=== PATIENT | female | born 1950 | race African-American/Black ===

== ENCOUNTER 2017-11-23 10:14 | Outpatient (CLI) | payer MEDICARE | END 2017-11-23 10:15 | disposition home or self-care (01) | LOC: BICMAMMO 10:14 | PROVIDERS: ATTEND Internal Medicine | DX: Z12.31 Encounter for screening mammogram for malignant neoplasm of breast (principal); R92.1 Mammographic calcification found on diagnostic imaging of breast; Z80.3 Family history of malignant neoplasm of breast | CPT/HCPCS: 77063; 77067 ==

== ENCOUNTER 2018-10-16 07:12 | Outpatient (CLI) | payer MEDICARE ==
[2018-10-16 08:11] LABS: Estimated GFR-MDRD - POC Greater than 90
--- NOTE | 2018-10-16 15:00 | MRI ---
MRI OF THE BILATERAL BREASTS WITHOUT AND WITH CONTRAST: HISTORY: Right breast pain and nipple discharge. The patient has a history of cheloid after right breast biop sy in 1977. TECHNIQUE: Multiplanar, multisequence MR images were obtained in the bilateral breasts without and with IV contr ast. This exam was evaluated on the [employer] work station. FINDINGS: Scattered fibroglandular breast tissue was seen. Minimal background parenchymal enhancement is seen. No suspicious mass or suspicious enhancement is seen in either breast. No axillary adenopathy is seen. No internal mammary lymph nodes are identified. The anterior liver and osseous structures are unremarkable. IMPRESSION: BIRADS category 1 - negative. Annual screening mammography is recommended.
[2018-10-16] MEDS ORDERED: Gadobenate Dimeglumine 529 MG/1 ML (20ML VIAL) ONE (15:57)
== END 2018-10-16 07:13 | disposition home or self-care (01) ==
LOC: BICMRI 07:12
PROVIDERS: ATTEND Surgery
DX: N64.52 Nipple discharge (principal)
CPT/HCPCS: 82565; C8908; A9577

== ENCOUNTER 2019-01-30 08:48 | Outpatient (CLI) | payer MEDICARE ==
--- NOTE | 2019-01-30 09:21 | MMO ---
Bilateral MAMMO Bilat Screen [facility]. CLINICAL HISTORY: Patient is 68 years old and is seen for screening. The patient has the following family history of breast cancer: mother and sister. The patient has no personal history of cancer. The patient has a history of bilateral Excisional Biopsy - benign. VIEWS: The views performed were: bilateral craniocaudal with tomosynthesis and bilateral mediolateral oblique with tomosynthesis. FILMS COMPARED: The present examination has been compared to prior imaging studies performed at [facility] on 10/16/2015, 11/22/2016, 11/23/2017 and 10/16/2018. This study has been interpreted with the assistance of computer-aided detection. MAMMOGRAM FINDINGS: There are scattered fibroglandular densities. There are no suspicious masses, suspicious calcifications, or new areas of architectural distortion. IMPRESSION: THERE IS NO MAMMOGRAPHIC EVIDENCE OF MALIGNANCY. A ROUTINE FOLLOW-UP MAMMOGRAM IN 1 YEAR IS RECOMMENDED. THE RESULTS OF THIS EXAM WERE SENT TO THE PATIENT. ACR BI-RADS Category 1 - Negative MAMMOGRAPHY NOTE: 1. A negative mammogram report should not delay a biopsy if a dominant of clinically suspicious mass is present. 2. Approximately 10% to 15% of breast cancers are not detected by mammography. 3. Adenosis and dense breasts may obscure an underlying neoplasm. Reported by: JULES HAMMOND MD Electonically Signed: [id number]
== END 2019-01-30 08:49 | disposition home or self-care (01) ==
LOC: BICMAMMO 08:48
PROVIDERS: ATTEND Internal Medicine
DX: Z12.31 Encounter for screening mammogram for malignant neoplasm of breast (principal); Z80.3 Family history of malignant neoplasm of breast
CPT/HCPCS: 77063; 77067

== ENCOUNTER 2020-01-14 08:04 | Outpatient (CLI) | payer MEDICARE ==
--- NOTE | 2020-01-14 09:04 | MMO ---
Bilateral MAMMO Bilat Diag [facility]. CLINICAL HISTORY: Patient is 69 years old and is seen for diagnostic exam and non-bloody discharge in the right breast. The patient has the following family history of breast cancer: mother and sister. The patient has no personal history of cancer. The patient has a history of bilateral Excisional Biopsy - benign. VIEWS: The views performed were: bilateral craniocaudal with tomosynthesis; bilateral mediolateral oblique with tomosynthesis; and bilateral mediolateral with tomosynthesis. FILMS COMPARED: The present examination has been compared to prior imaging studies performed at [facility] on 11/23/2017, 10/16/2018, 01/30/2019 and 01/14/2020. This study has been interpreted with the assistance of computer-aided detection. MAMMOGRAM FINDINGS: There are scattered fibroglandular densities. Benign calcifications are noted bilaterally. No mammographic or sonograhic abnormality is seen in the right subaerolar breast. There are no suspicious masses, suspicious calcifications, or new areas of architectural distortion. IMPRESSION: THERE IS NO MAMMOGRAPHIC EVIDENCE OF MALIGNANCY. A ROUTINE FOLLOW-UP MAMMOGRAM IN 1 YEAR IS RECOMMENDED. THE RESULTS OF THIS EXAM WERE SENT TO THE PATIENT. ACR BI-RADS Category 2 - Benign finding MAMMOGRAPHY NOTE: 1. A negative mammogram report should not delay a biopsy if a dominant of clinically suspicious mass is present. 2. Approximately 10% to 15% of breast cancers are not detected by mammography. 3. Adenosis and dense breasts may obscure an underlying neoplasm. Reported by: DEEDEE TSE MD Electonically Signed: [id number]
--- NOTE | 2020-01-14 09:11 | ULT ---
RIGHT BREAST ULTRASOUND: HISTORY: Milky discharge from the right breast. FINDINGS: Correlation is made with the mammogram of the same day. Sonographic evaluation of the retroareolar aspect of the right breast demonstrates no abnormality. IMPRESSION: BIRADS category 2 - benign findings. Return to annual mammographic screening. POS: OFF
== END 2020-01-14 08:05 | disposition home or self-care (01) ==
LOC: BICMAMMO 08:04
PROVIDERS: ATTEND Surgery
DX: N64.52 Nipple discharge (principal)
CPT/HCPCS: 76642; 77066; G0279

== ENCOUNTER 2020-03-05 07:48 | Outpatient (CLI) | payer MEDICARE ==
[2020-03-05 18:47] LABS: #Eosinphils 0.1 10x3/uL (0.0-0.5); #Monocytes 0.4 10x3/uL (0.0-1.1); #Neutrophils 2.3 10x3/uL (1.5-8.4); %Basophils 0.7 % (0.0-2.0); %Eosinophils 2.4 % (0.0-6.0); %Lymphocytes 47.8 % (18.0-47.0); %Neutrophils 41.9 % (40.0-75.0); Mean Corpuscular HGB CONC 32.6 G/DL (32.0-36.0); Mean Corpuscular Volume 89.1 fl (80.0-100.0); Mean Platelet Volume 10.1 fl (7.4-10.4); Platelet Count 254 10x3/uL (130-400); RBC Distribution Width 13.3 % (11.5-14.5); Red Blood Cell (RBC) Count 4.48 10x6/uL (3.90-5.20); White Blood Cell (WBC) Count 5.4 10x3/uL (4.5-11.0)
[2020-03-06 01:59] LABS: SARS-CoV-2 PCR by NAA Not Detected (NotDetected)
== END 2020-03-05 07:49 | disposition home or self-care (01) ==
LOC: LABBT 07:48
PROVIDERS: ATTEND Surgery
DX: Z01.812 Encounter for preprocedural laboratory examination (principal); Z20.822 Contact with and (suspected) exposure to COVID-19; N64.52 Nipple discharge
CPT/HCPCS: 85025; U0003; U0005; 87635

== ENCOUNTER 2020-03-09 05:53 | Day surgery (SDC) | payer MEDICARE ==
[2020-03-06 10:11] VITALS: BMI 33.5
[2020-03-09] MEDS ORDERED: Lidocaine 2% PF 5 ML VIAL ONE (06:25)
[2020-03-09] MEDS ORDERED: EPINEPHrine 1 MG/ML AMP ONE (06:25)
[2020-03-09] MEDS ORDERED: Isosulfan Blue 50 MG/5 ML VIAL ONE (06:25)
[2020-03-09] MEDS ORDERED: Bupivacaine PF 0.5% 30 ML VIAL ONE (06:25)
[2020-03-09] MEDS ORDERED: Fentanyl 100 MCG/2 ML VIAL ONE (06:55)
--- NOTE | 2020-03-09 07:42 | HP ---
CHIEF COMPLAINT: Right breast nipple discharge. HISTORY OF PRESENT ILLNESS: The patient is a 69-year-old female with a strong family history of breast cancer, who was found to have a right nipple discharge on [employer] exam. No mass on breast self exam. Mammogram was unremarkable. PAST MEDICAL HISTORY: Hypertension. PAST SURGICAL HISTORY: She has had a partial hysterectomy. She has had right breast biopsies in the past that were benign. FAMILY HISTORY: Breast cancer in father, mother, and siblings. SOCIAL HISTORY: No smoking. ALLERGIES: NO KNOWN DRUG ALLERGIES. PHYSICAL EXAMINATION: GENERAL: She is a well-developed, well-nourished female, in no apparent distress. HEENT: Unremarkable. LUNGS: Clear. HEART: Regular rate and rhythm. ABDOMEN: Soft, nontender. Good bowel sounds. BREAST: She has an extensive keloid of the lower right breast and upper inner right breast. No palpable masses. No lymphadenopathy. There is a small amount of discharge expressible from the central right nipple. ABDOMEN: Soft, nontender. Good bowel sounds. No palpable masses or hernias. EXTREMITIES: Good pulses. No pedal edema. ASSESSMENT: Right nipple discharge. PLAN: Right lactiferous duct excision. CONSENT: I have discussed planned procedure as well as risk of bleeding, infection, keloid formation. She understands and gives informed consent. Job ID: [id number]
--- NOTE | 2020-03-09 08:57 | OP ---
DATE OF PROCEDURE: 03/09/2020 PREOPERATIVE DIAGNOSIS: Right nipple discharge. PROCEDURE PERFORMED: Right lactiferous duct excision. INDICATIONS: This is a 69-year-old female with a family history of breast cancer. Mammogram was negative, who had a central drainage from the right breast. FINDINGS: It was unable to cannulate the tiny little opening of the nipple duct with a 4-0 Prolene, but it was central in location, was able to excise the central ductal system, marked with a blue suture, anterior; white, superior; black, lateral. DESCRIPTION OF PROCEDURE: After informed consent was obtained, the patient was taken to the operating room, given general mask anesthesia, placed in the supine position. Her right breast was prepped and draped in usual fashion. The breast was massaged to express yellowish fluid from the central duct. I tried to cannulate this, but the opening was just really small. I could not get the suture to pass with multiple attempts, so I end up doing a circumareolar incision and then doing a subareolar dissection to the nipple area. On the central nipple, there was some enlargement of the ducts there. This was then chosen as the excisional area and it was grasped with hemostat and excised sharply posteriorly. This was marked with a blue suture, anterior; white suture, superior; and a black suture, lateral, and sent to Pathology for further analysis. Hemostasis was achieved with electrocautery. The wound was thoroughly irrigated with saline. Hemostasis was assured. Subcu was reapproximated with interrupted 3-0 Vicryl. Skin was closed with a running subcuticular 4-0 Rapide. Steri-Strips were applied. Sterile bandage was applied. The patient tolerated the procedure well, transferred to Recovery in good condition. Sponge and needle counts were verified correct x2. Job ID: [id number]
[2020-03-09] MEDS ORDERED: Dexamethasone 20 MG/5 ML VIAL ONE (10:47)
[2020-03-09] MEDS ORDERED: PROPOFOL 200 MG/20 ML VIAL ONE (10:47)
[2020-03-09] MEDS ORDERED: Ketorolac Tromethamine 30 MG/ML VIAL ONE (10:47)
[2020-03-09] MEDS ORDERED: Ondansetron PF 4 MG/2 ML Vial ONE (10:47)
[2020-03-09] MEDS ORDERED: Lidocaine 1% PF 5 ML VIAL ONE (10:47)
== END 2020-03-09 10:40 | disposition home or self-care (01) ==
LOC: SDC 05:53
PROVIDERS: ATTEND Surgery
PROC: 0HBWXZZ Excision of Right Nipple, External Approach (ICD-10-PCS; principal; 2020-03-09)
DX: N64.52 Nipple discharge (principal); I10 Essential (primary) hypertension; Z79.899 Other long term (current) drug therapy
CPT/HCPCS: 88307; J0171; J0690; J1100; J1885; J2001; J2405; J2704; J3010; Q9968; S0020

== ENCOUNTER 2021-01-19 08:26 | Outpatient (CLI) | payer MEDICARE | END 2021-01-19 08:27 | disposition home or self-care (01) | LOC: BICMAMMO 08:26 | PROVIDERS: ATTEND Internal Medicine | DX: Z12.31 Encounter for screening mammogram for malignant neoplasm of breast (principal); Z80.3 Family history of malignant neoplasm of breast; Z91.89 Other specified personal risk factors, not elsewhere classified | CPT/HCPCS: 77063; 77067 ==

== ENCOUNTER 2022-04-19 07:45 | Outpatient (CLI) | payer OTHER | END 2022-04-19 07:46 | disposition home or self-care (01) | LOC: BICMAMMO 07:45 | PROVIDERS: ATTEND Internal Medicine | DX: Z12.31 Encounter for screening mammogram for malignant neoplasm of breast (principal); Z80.3 Family history of malignant neoplasm of breast; Z91.89 Other specified personal risk factors, not elsewhere classified | CPT/HCPCS: 77063; 77067 ==